=== PATIENT | female | born 1935 | race Caucasian/White ===

== ENCOUNTER → 2016-11-23 | Outpatient (CLI) | payer MEDICARE ==
[~2016-11-23] MED LIST: ACET-1600 PO; ALPH300C PO; AMLO5TAB2 PO; ASPI-496 PO; BIOT5TAB PO; CALC-557 PO; CAND1TAB4 PO; CELE200C PO; DIAZ5TAB PO; DIPH25CA61 PO; HYDR12.547 PO; MAGNESIUM PO; ONDA4TAB7 PO; OXYC-302 PO; TIZA2CAP2 PO; TRAM50TA2 PO; VIT1TABL32 PO; [UNRECOGNIZED DRUG - CODE] PO
== END | disposition home or self-care (01) ==
LOC: CFH 11:13
PROVIDERS: ATTEND Nurse Practitioner Family
DX: S22.089A Unspecified fracture of T11-T12 vertebra, initial encounter for closed fracture (principal); M41.84 Other forms of scoliosis, thoracic region; M48.06 Spinal stenosis, lumbar region; Z98.1 Arthrodesis status; X58.XXXA Exposure to other specified factors, initial encounter; Y92.89 Other specified places as the place of occurrence of the external cause; Y99.8 Other external cause status; Y93.89 Activity, other specified
CPT/HCPCS: 72072; 72114

== ENCOUNTER → 2019-08-23 | Outpatient (CLI) | payer MEDICARE ==
[~2019-08-23] MED LIST changes: +AMLO-150 PO; -AMLO5TAB2 PO; +CAND1TAB34 PO; -CAND1TAB4 PO
== END | disposition home or self-care (01) ==
LOC: WOUND 13:31
PROVIDERS: ATTEND Internal Medicine
DX: L97.822 Non-pressure chronic ulcer of other part of left lower leg with fat layer exposed (principal); I10 Essential (primary) hypertension; E78.5 Hyperlipidemia, unspecified; M19.90 Unspecified osteoarthritis, unspecified site; Z90.710 Acquired absence of both cervix and uterus; Z87.891 Personal history of nicotine dependence
CPT/HCPCS: 97597; G0463

== ENCOUNTER → 2019-09-08 | Outpatient (CLI) | payer MEDICARE | END | disposition home or self-care (01) | LOC: WOUND 13:07 | PROVIDERS: ATTEND Family Medicine | DX: L97.822 Non-pressure chronic ulcer of other part of left lower leg with fat layer exposed (principal); I10 Essential (primary) hypertension; E78.5 Hyperlipidemia, unspecified; M19.90 Unspecified osteoarthritis, unspecified site; Z90.710 Acquired absence of both cervix and uterus; Z87.891 Personal history of nicotine dependence | CPT/HCPCS: 97597 ==

== ENCOUNTER 2019-09-22 13:00 | Outpatient (CLI) | payer MEDICARE | END 2019-09-22 23:59 | disposition home or self-care (01) | LOC: WOUND 13:00 | PROVIDERS: ATTEND Family Medicine | DX: L97.822 Non-pressure chronic ulcer of other part of left lower leg with fat layer exposed (principal); I10 Essential (primary) hypertension; E78.5 Hyperlipidemia, unspecified; M19.90 Unspecified osteoarthritis, unspecified site; Z90.710 Acquired absence of both cervix and uterus; Z87.891 Personal history of nicotine dependence | CPT/HCPCS: 97597 ==